=== PATIENT | male | born 1985 | race Caucasian/White ===

== ENCOUNTER 2018-12-21 17:56 | Emergency (ER) | payer OTHER ==
[2018-12-21] MEDS: CARBAMIDE PEROXIDE 6.5% 15ML OTIC BOTH EARS (19:56)
== END 2018-12-21 20:14 | disposition home or self-care (01) ==
LOC: FTE 17:56
DX: H61.21 Impacted cerumen, right ear (principal); F17.210 Nicotine dependence, cigarettes, uncomplicated
CPT/HCPCS: 69209; 99283-25